=== PATIENT | male | born 1955 | race Caucasian/White ===

== ENCOUNTER 2016-08-04 17:06 | Inpatient (IN) | payer OTHER ==
[2016-08-04 18:00] LABS: HEMOGLOBIN 13.7 gm/dl (14.0-17.5); RED BLOOD COUNT 4.63 M/UL (4.20-5.50); WHITE BLOOD COUNT 8.3 K/UL (4.5-11.0)
[2016-08-04 18:30] LABS: BUN/CREATININE RATIO 19 (0-10)
[2016-08-05] MEDS ORDERED: CLOPIDOGREL75 MG PO (00:46)
[2016-08-05] MEDS ORDERED: XANAX1 MG PO (00:46)
[2016-08-05] MEDS ORDERED: SOMA350 MG PO (00:46)
[2016-08-05] MEDS ORDERED: LIPITOR TAB 2020 MG PO (00:47)
[2016-08-05] MEDS ORDERED: RANITIDINE HCL300 MG PO (00:47)
[2016-08-05] MEDS ORDERED: NEURONTIN 300300 MG PO (00:47)
[2016-08-05] MEDS ORDERED: LOSARTAN-HCTZ1 EAC1 PO (00:48)
[2016-08-05] MEDS ORDERED: ASPIRIN CHEWABL81 MG PO (00:48)
[2016-08-05] MEDS ORDERED: LOTREL 10-40 M1 EACH PO (01:01)
[2016-08-05] MEDS ORDERED: GLUCOPHAGE1000 MG PO (01:02)
[2016-08-05] MEDS ORDERED: LORTAB 5-325 M1 EACH PO (01:03)
[2016-08-05 04:23] LABS: HEMOGLOBIN 12.4 gm/dl (14.0-17.5); RED BLOOD COUNT 4.23 M/UL (4.20-5.50); WHITE BLOOD COUNT 9.6 K/UL (4.5-11.0)
[2016-08-05 04:47] LABS: BUN/CREATININE RATIO 21 (0-10)
[2016-08-05 20:39] LABS: HEMOGLOBIN 12.1 gm/dl (14.0-17.5); RED BLOOD COUNT 4.08 M/UL (4.20-5.50)
[2016-08-05 20:59] LABS: BUN/CREATININE RATIO 20 (0-10)
[2016-08-06 04:49] LABS: HEMOGLOBIN 11.9 gm/dl (14.0-17.5); RED BLOOD COUNT 4.11 M/UL (4.20-5.50); WHITE BLOOD COUNT 6.1 K/UL (4.5-11.0)
[2016-08-06 05:04] LABS: BUN/CREATININE RATIO 20 (0-10)
[2016-08-06] MEDS ORDERED: BRILINTA 90 MG90 MG PO (10:28)
== END 2016-08-06 11:20 | disposition home or self-care (01) | DRG 247 ==
LOC: ER1 17:06 → ZEROF 20:50 → M/S 20:50 → PROG CARE 08-05 12:08 → M/S 08-05 12:08 → PROG CARE 08-05 13:00
PROVIDERS: Emergency Medicine; Internal Medicine; ADMIT Internal Medicine
PROC: 027034Z Dilation of Coronary Artery, One Artery with Drug-eluting Intraluminal Device, Percutaneous Approach (ICD-10-PCS; principal; 2016-08-05)
PROC: 4A023N7 Measurement of Cardiac Sampling and Pressure, Left Heart, Percutaneous Approach (ICD-10-PCS; 2016-08-05)
PROC: B2111ZZ Fluoroscopy of Multiple Coronary Arteries using Low Osmolar Contrast (ICD-10-PCS; 2016-08-05)
PROC: B2131ZZ Fluoroscopy of Multiple Coronary Artery Bypass Grafts using Low Osmolar Contrast (ICD-10-PCS; 2016-08-05)
PROC: B2181ZZ Fluoroscopy of Left Internal Mammary Bypass Graft using Low Osmolar Contrast (ICD-10-PCS; 2016-08-05)
PROC: B2151ZZ Fluoroscopy of Left Heart using Low Osmolar Contrast (ICD-10-PCS; 2016-08-05)
DX: I21.4 Non-ST elevation (NSTEMI) myocardial infarction (principal); I25.719 Atherosclerosis of autologous vein coronary artery bypass graft(s) with unspecified angina pectoris; I25.119 Atherosclerotic heart disease of native coronary artery with unspecified angina pectoris; I10 Essential (primary) hypertension; E11.9 Type 2 diabetes mellitus without complications; E78.5 Hyperlipidemia, unspecified; D64.9 Anemia, unspecified; E66.9 Obesity, unspecified; Z68.39 Body mass index [BMI] 39.0-39.9, adult; G47.33 Obstructive sleep apnea (adult) (pediatric); M51.36 Other intervertebral disc degeneration, lumbar region; M19.90 Unspecified osteoarthritis, unspecified site; I25.2 Old myocardial infarction; Z72.0 Tobacco use; F41.9 Anxiety disorder, unspecified; Z91.19 Patient's noncompliance with other medical treatment and regimen; Z72.3 Lack of physical exercise; Z79.84 Long term (current) use of oral hypoglycemic drugs; Z79.02 Long term (current) use of antithrombotics/antiplatelets; Z79.82 Long term (current) use of aspirin; Z79.891 Long term (current) use of opiate analgesic; Z79.899 Other long term (current) drug therapy; Z88.8 Allergy status to other drugs, medicaments and biological substances; Z96.652 Presence of left artificial knee joint; Z98.890 Other specified postprocedural states; Z82.49 Family history of ischemic heart disease and other diseases of the circulatory system
CPT/HCPCS: ECHO; 36415; 71010; 80048; 80053; 80061; 82550; 82553; 82607; 82728; 82746; 82962; 83036; 83735; 83874; 84439; 84443; 84484; 85025; 85027; 85347; 93005; 93306; 99285; C1725; C1769; C1874; C1887; G0378; J0461; J0583; J1644; J1650; J2250; J2370; J3010; J7030; J7040; J7050; Q9963